=== PATIENT | male | born 1990 | race Two or more races ===

== ENCOUNTER 2017-05-27 13:36 | Emergency (ER) | payer MEDICAID ==
[2017-05-27 13:41] VITALS: BP 131/76; PULSE 74; RESP 16; TEMP 97.5; O2SAT 96
--- NOTE | 2017-05-27 13:57 | EDPHY ---
H & P Stated Complaint: MAY HAVE SUBLUXED R SHOULDER YESTERDAY AT WORK/PAIN Time Seen by Provider: 05/27/17 13:57 HPI/ROS: CHIEF COMPLAINT: Right shoulder pain HISTORY OF PRESENT ILLNESS: The patient presents to the ED with complaints of right shoulder pain. 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 He reportedly was x-raying an animal yesterday and sustained an injury to the right shoulder. He developed a sensation as if his right shoulder was out of joint. It reportedly "popped" and since that time has had persistent pain. The patient does have a normal range of motion albeit with discomfort. The patient denies acute numbness or weakness. The patient has no prior history of shoulder injury, surgery or dislocation. REVIEW OF SYSTEMS: A comprehensive 10 point review of systems is otherwise negative aside from elements mentioned in the history of present illness. Source: Patient - Personal History Current Tetanus/Diphtheria Vaccine: No - Medical/Surgical History Hx Asthma: No Hx Chronic Respiratory Disease: No Hx Diabetes: No Hx Cardiac Disease: No Hx Renal Disease: No Hx Cirrhosis: No Hx Alcoholism: No Hx HIV/AIDS: No Hx Splenectomy or Spleen Trauma: No Other PMH: SCOLIOSIS - Social History Smoking Status: Current every day smoker - Physical Exam Exam: General: No acute distress Neurological: Sensation intact to light touch and normal motor function noted in the right upper extremity Skin: Warm and dry, no rashes Musculoskeletal: Tenderness to palpation over the right biceps tendon Extremities: symmetrical, full range of motion Constitutional: Initial Vital Signs Temperature (C) 36.4 C 05/27/17 13:39 Heart Rate 74 05/27/17 13:39 Respiratory Rate 16 05/27/17 13:39 Blood Pressure 131/76 H 05/27/17 13:39 O2 Sat (%) 96 05/27/17 13:39 O2 Delivery Mode Room Air Allergies/Adverse Reactions: No Known Allergies Allergy (Unverified 05/27/17 13:38) Home Medications: Medication Instructions Recorded NK [No Known Home Meds] 05/27/17 Medical Decision Making - Diagnostics Imaging Results: Right shoulder x-ray: Images reviewed by myself, negative for dislocation or obvious Hill-Sachs injury. ED Course/Re-evaluation: The patient presents to the ED with a right shoulder sprain. There is no evidence of a fracture, dislocation or neurovascular injury. The patient will be advised to use ibuprofen as needed for pain. He should follow up with our on -call orthopedic surgeon for any persistent pain, decreased range of motion or other concerns. Differential Diagnosis: Differential diagnosis considered includes fracture, sprain, dislocation Departure - Departure Disposition: Home, Routine, Self-Care Clinical Impression: Right shoulder strain Condition: Good Instructions: Musculoskeletal Pain (ED) Additional Instructions: 1. Take Ibuprofen or Motrin 600 mg by mouth three times a day. 2. Follow up with the orthopedic surgeon you have been referred to for any pain , immobility or sensation of instability which persists past 5-7 days. Referrals: Kelly Winston MD [Medical Doctor] - As per Instructions
== END 2017-05-27 14:37 | disposition home or self-care (01) ==
DX: S46.911A Strain of unspecified muscle, fascia and tendon at shoulder and upper arm level, right arm, initial encounter (principal); F17.200 Nicotine dependence, unspecified, uncomplicated; X58.XXXA Exposure to other specified factors, initial encounter; Y92.89 Other specified places as the place of occurrence of the external cause; Y99.0 Civilian activity done for income or pay; Y93.89 Activity, other specified

== ENCOUNTER 2018-11-25 18:11 | Emergency (ER) | payer MEDICAID, OTHER ==
[2018-11-25 18:25] VITALS: BP 146/96
[2018-11-25] MEDS ORDERED: IBUPROFEN 600 MG TAB PO ONE (18:36)
[2018-11-25] MEDS ORDERED: AMOXICILLIN/CLAVULANATE POT 875/125 MG TAB PO ONE (18:36)
--- NOTE | 2018-11-25 18:38 | EDPHY ---
H & P Time Seen by Provider: 11/25/18 18:28 HPI/ROS: CHIEF COMPLAINT: Dog bite HISTORY OF PRESENT ILLNESS: 20-year-old male was bit on the left wrist by a dog that he was dog sitting. He feels like the dog bit him because he was in unfamiliar individual entering the dog's house. The dog is his friends pet. Bleeding well controlled. Patient believes that the dog is fully vaccinated. Patient himself is from [place] and states that he has had rabies vaccination himself. REVIEW OF SYSTEMS: A comprehensive 10 system review of systems was reviewed and is otherwise negative aside from elements mentioned in the history of present illness and medical decision making. 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 Nonsmoker. GENERAL APPEARANCE: Pleasant, alert, conversant. FOCUSED EXAM OF left upper extremity: 0.5 cm bite laceration is present along the distal forearm. Nonsuturable. Quarter cm laceration present over the ulnar styloid, again nonsuturable. Bleeding well controlled. Normal sensation distally. Brisk capillary refill. Smoking Status: Heavy smoker Constitutional: Initial Vital Signs Temperature (C) 36.5 C 11/25/18 18:23 Heart Rate 81 11/25/18 18:23 Respiratory Rate 18 11/25/18 18:23 Blood Pressure 146/96 H 11/25/18 18:23 O2 Sat (%) 97 11/25/18 18:23 O2 Delivery Mode Room Air Allergies/Adverse Reactions: No Known Allergies Allergy (Unverified 11/25/18 18:25) Home Medications: Medication Instructions Recorded Amoxicillin/Clavulanate Pot 875 mg PO BID #14 tab 11/25/18 [Augmentin 875 MG TAB (*)] Medical Decision Making ED Course/Re-evaluation: Patient received Augmentin in the emergency department. He was given a prescription for Augmentin 875 twice daily. Wound care was provided. Patient was instructed regarding infection precautions, ibuprofen for pain, and follow up as needed. Animal Control was contacted. Differential Diagnosis: Differential diagnosis for the patient's injury was considered including but not limited to contusion, abrasion, laceration, puncture wound, animal bite. - Data Points Medications Given: Discontinued Medications Amoxicillin/Clavulanate Potassium (Augmentin 875mg) 875 mg PO EDNOW ONE PRN Reason: Protocol Stop: 11/25/18 18:37 Last Admin: 11/25/18 18:59 Dose: 875 mg Ibuprofen (Motrin) 600 mg PO EDNOW ONE Stop: 11/25/18 18:37 Last Admin: 11/25/18 18:59 Dose: 600 mg Departure - Departure Disposition: Home, Routine, Self-Care Clinical Impression: Dog bite Qualifiers: Encounter type: initial encounter Qualified Code(s): W54.0XXA - Bitten by dog, initial encounter Condition: Good Instructions: Animal Bite (ED) Additional Instructions: Please take antibiotics as directed. Augmentin 875 mg by mouth 2 times a day for the next 7 days. Watch for signs of infection. Return to the emergency department or seek care urgently as needed. Referrals: NONE *PRIMARY CARE P,. [Primary Care Provider] - As per Instructions Prescriptions: Amoxicillin/Clavulanate Pot [Augmentin 875 MG TAB (*)] 875 mg PO BID #14 tab
== END 2018-11-25 18:58 | disposition home or self-care (01) ==
DX: S51.832A Puncture wound without foreign body of left forearm, initial encounter (principal); W54.0XXA Bitten by dog, initial encounter; Y92.009 Unspecified place in unspecified non-institutional (private) residence as the place of occurrence of the external cause